=== PATIENT | female | born 2000 | race Caucasian/White ===

== ENCOUNTER 2021-09-22 16:35 | Inpatient (IN) | payer OTHER ==
[~2021-09-22] VITALS: Ht 144.8 cm; Wt 67.1 kg
[~2021-09-22 16:35] MED LIST: CIPRO500 MG PO; FLAGYL500 MG PO; IBU800 MG PO; ZOFRAN ODT 4 MG4 MG PO
[2021-09-22 17:21] LABS: HEMOGLOBIN 11.1 gm/dl (12.3-15.3); RED BLOOD COUNT 4.03 M/UL (4.00-5.10); WHITE BLOOD COUNT 14.9 K/UL (4.5-11.0)
[2021-09-22] MEDS ORDERED: PRENATAL VITAM1 EAC3 PO (17:41)
[2021-09-23] MEDS ORDERED: COLACE 100MG C100 MG PO (15:53)
[2021-09-23] MEDS ORDERED: IBUPROFEN600 MG PO (15:53)
[2021-09-23] MEDS ORDERED: FERROUS SULFAT325 MG PO (15:53)
[2021-09-23] MEDS ORDERED: PERCOCET 5-3251 EACH PO (15:53)
[2021-09-24 04:29] LABS: HEMOGLOBIN 9.2 gm/dl (12.3-15.3)
== END 2021-09-25 16:51 | disposition home or self-care (01) | DRG 786 ==
LOC: GENOP 16:35 → OB 17:25
PROVIDERS: Obstetrics & Gynecology; ADMIT Obstetrics & Gynecology
PROC: 10907ZC Drainage of Amniotic Fluid, Therapeutic from Products of Conception, Via Natural or Artificial Opening (ICD-10-PCS; 2021-09-23)
PROC: 4A1HXCZ Monitoring of Products of Conception, Cardiac Rate, External Approach (ICD-10-PCS; 2021-09-23)
PROC: B24BZZZ Ultrasonography of Heart with Aorta (ICD-10-PCS; 2021-09-23)
PROC: 10D00Z1 Extraction of Products of Conception, Low, Open Approach (ICD-10-PCS; principal; 2021-09-23 14:48)
DX: O76 Abnormality in fetal heart rate and rhythm complicating labor and delivery (principal); O99.42 Diseases of the circulatory system complicating childbirth; O36.5930 Maternal care for other known or suspected poor fetal growth, third trimester, not applicable or unspecified; Z37.0 Single live birth; Z3A.36 36 weeks gestation of pregnancy; Z20.822 Contact with and (suspected) exposure to COVID-19; Z82.49 Family history of ischemic heart disease and other diseases of the circulatory system; I37.2 Nonrheumatic pulmonary valve stenosis with insufficiency; O69.2XX0 Labor and delivery complicated by other cord entanglement, with compression, not applicable or unspecified
CPT/HCPCS: ECHO; 36415; 81001; 82800; 85014; 85018; 85025; 93005; 93306; C9113; J0690; J1170; J1885; J2001; J2250; J2274; J2405; J2590; J2704; J2795; J3010; J7120; U0002